=== PATIENT | male | born 1965 | race Caucasian/White ===

== ENCOUNTER 2017-02-03 20:04 | Emergency (ER) | payer OTHER ==
[2017-02-03 20:15] VITALS: RESP 18
--- NOTE | 2017-02-03 21:02 | XR ---
EXAMINATION TYPE: XR ankle complete LT DATE OF EXAM: 02/03/2017 COMPARISON: NONE HISTORY: Pain TECHNIQUE: 3 views FINDINGS: There are plantar and Achilles calcaneal spurs. Ankle mortise is anatomic. There is soft ti ssue swelling over the lateral malleolus. I see no fracture. IMPRESSION: Soft tissue swelling. No fracture.
--- NOTE | 2017-02-03 21:32 | ED ---
Lower Extremity Injury HPI - General Chief Complaint: Extremity Injury, Lower Stated Complaint: [facility] lt ankle injury Time Seen by Provider: 02/03/17 20:34 Source: patient Mode of arrival: wheelchair Limitations: no limitations - Related Data Allergies Allergy/AdvReac Type Severity Reaction Status Date / Time No Known Allergies Allergy Verified 02/03/17 20:14 Review of Systems ROS Statement: Those systems with pertinent positive or pertinent negative responses have been documented in the HPI. ROS Other: All systems not noted in ROS Statement are negative. Past Medical History Past Medical History: Hypertension, Thyroid Disorder History of Any Multi-Drug Resistant Organisms: None Reported Additional Past Surgical History / Comment(s): Sinus surgery Past Psychological History: No Psychological Hx Reported Smoking Status: Current every day smoker Past Alcohol Use History: None Reported Past Drug Use History: None Reported General Exam Limitations: no limitations Course Vital Signs 02/03/17 20:11 Temperature 99.9 F H Pulse Rate 88 Respiratory 18 Rate Blood Pressure 153/91 O2 Sat by Pulse 96 Oximetry Medical Decision Making - Medical Decision Making Left ankle sprain. Left ankle x-ray with no evidence of fracture or dislocation. - Radiology Data Radiology results: report reviewed X-ray left ankle: There are plantar and Achilles calcaneal spurs. Ankle mortise is anatomic. There is soft tissue swelling over the lateral malleolus. No fracture. As read by radiologist Dr. Melvin. Disposition Clinical Impression: Ankle sprain and strain Disposition: HOME SELF-CARE Condition: Good Instructions: Ankle Sprain (ED) Additional Instructions: Avoid activity that causes pain Ice 20 minutes 4 times a day usually for 2-3 days Yonatan wrap to provide support and limit swelling Keep elevated as much as possible 24-48 hours. Continue Motrin 800 mg every 8 hours for next 2 days [id number]. Return to the emergency department with symptoms of increased swelling, pain, numbness, tingling, or foot feeling cold to touch. Follow-up with primary service and orthopedic service as directed. Referrals: None,Stated [Primary Care Provider] - 1-2 days Carter Hodge MD [Medical Doctor] - 1-2 days Time of Disposition: 21:32
--- NOTE | 2017-02-03 21:43 | ED ---
Lower Extremity Injury HPI - General Chief Complaint: Extremity Injury, Lower Stated Complaint: [facility] lt ankle injury Time Seen by Provider: 02/03/17 20:34 Source: patient Mode of arrival: wheelchair Limitations: no limitations - History of Present Illness Initial Comments: Patient is a 51-year-old male presenting to the emergency department with complaints of left ankle pain. Patient states he was working on a roof when he fell and twisted his left ankle. Onset of injury approximately one hour prior to arrival. Patient is currently complaining of left lateral ankle pain, described as throbbing, 7 out of 10 on the pain scale, exacerbated with movement, relieved with rest. Patient was able to ambulate at the scene of injury and in the emergency department. Patient reports previous sprain of left ankle. Patient denies surgery to left lower extremity. No treatment prior to arrival. - Related Data Allergies Allergy/AdvReac Type Severity Reaction Status Date / Time No Known Allergies Allergy Verified 02/03/17 20:14 Review of Systems ROS Statement: Those systems with pertinent positive or pertinent negative responses have been documented in the HPI. ROS Other: All systems not noted in ROS Statement are negative. Past Medical History Past Medical History: Hypertension, Thyroid Disorder History of Any Multi-Drug Resistant Organisms: None Reported Additional Past Surgical History / Comment(s): Sinus surgery Past Psychological History: No Psychological Hx Reported Smoking Status: Current every day smoker Past Alcohol Use History: None Reported Past Drug Use History: None Reported General Exam Limitations: no limitations General appearance: alert, in no apparent distress Head exam: Present: atraumatic, normocephalic, normal inspection Eye exam: Present: normal appearance ENT exam: Present: normal exam, mucous membranes moist, normal external ear exam Neck exam: Present: normal inspection, full ROM. Absent: tenderness Respiratory exam: Present: normal lung sounds bilaterally. Absent: respiratory distress, wheezes, rales, rhonchi, stridor Cardiovascular Exam: Present: regular rate, normal rhythm, normal heart sounds. Absent: systolic murmur, diastolic murmur, rubs, gallop, clicks GI/Abdominal exam: Present: soft, normal bowel sounds. Absent: distended, tenderness, guarding, rebound, rigid Left Lower Leg exam: Present: normal inspection, full ROM. Absent: tenderness, swelling Ankle exam: Present: tenderness, swelling (Tenderness and swelling to primarily left lateral malleolus). Absent: full ROM (Decreased range of motion secondary to pain), abrasion, laceration, crepitus Foot/Toe exam: Present: normal inspection, full ROM. Absent: tenderness, swelling Neurovascular tendon exam: Present: no vascular compromise. Absent: pulse deficit, abnormal cap refill, motor deficit, sensory deficit, extremity cold to touch, abnormal 2-point discrimination, decreased fine/light touch, foot drop, significant pain with passive ROM of distal joint Gait: observed and limited by pain Back exam: Present: normal inspection, full ROM. Absent: paraspinal tenderness , vertebral tenderness Neurological exam: Present: alert, oriented X3, other (No focal deficits noted) Psychiatric exam: Present: normal affect, normal mood Skin exam: Present: warm, dry, intact, normal color Course Vital Signs 02/03/17 20:11 Temperature 99.9 F H Pulse Rate 88 Respiratory 18 Rate Blood Pressure 153/91 O2 Sat by Pulse 96 Oximetry Medical Decision Making - Medical Decision Making Left ankle sprain. Disposition Clinical Impression: Ankle sprain and strain Disposition: HOME SELF-CARE Condition: Good Instructions: Ankle Sprain (ED) Additional Instructions: Avoid activity that causes pain Ice 20 minutes 4 times a day usually for 2-3 days Yonatan wrap to provide support and limit swelling Keep elevated as much as possible 24-48 hours. Continue Motrin 800 mg every 8 hours for next 2 days [id number]. Return to the emergency department with symptoms of increased swelling, pain, numbness, tingling, or foot feeling cold to touch. Follow-up with primary service and orthopedic service as directed. Referrals: None,Stated [Primary Care Provider] - 1-2 days Carter Hodge MD [Medical Doctor] - 1-2 days Time of Disposition: 21:42
[2017-02-03] MEDS: IBUPROFEN 800 MG TAB PO STA (21:52)
[2017-02-03 22:06] VITALS: BP 166/94; PULSE 82; TEMP 97.9
== END 2017-02-03 22:06 | disposition home or self-care (01) ==
LOC: EC 20:04
DX: S93.402A Sprain of unspecified ligament of left ankle, initial encounter (principal); F17.200 Nicotine dependence, unspecified, uncomplicated; W19.XXXA Unspecified fall, initial encounter; Y93.89 Activity, other specified; Y92.69 Other specified industrial and construction area as the place of occurrence of the external cause; Y99.0 Civilian activity done for income or pay
CPT/HCPCS: 99283